=== PATIENT | female | born 1980 | race Caucasian/White ===

== ENCOUNTER 2017-01-23 21:30 | Inpatient (IN) | payer MEDICAID ==
[~2017-01-23] VITALS: Ht 149.9 cm; Wt 58.2 kg
[2017-01-23 21:56] LABS: BASOPHILS 0.3 % (0-2); EOSINOPHILS 0.9 % (0-7); HEMATOCRIT 42.6 % (36.0-48.0); HEMOGLOBIN 14.3 g/dL (12-16); IMMATURE GRANULOCYTES 0.3 % (0-5); LYMPHOCYTES 29.6 % (15-50); MCH 31.8 pg (26.0-34.0); MCHC 33.6 g/dL (31.0-37.0); MCV 94.7 fL (80.0-100.0); MEAN PLATELET VOLUME 9.1 fL (7.4-10.4); MONOCYTES 9.6 % (2-11); NEUTROPHILS 59.3 % (40-80); PLATELET COUNT 493 10x3/uL (130-400); RDW 13.3 % (11.5-14.5); WBC 11.8 10x3/uL (4.8-10.8)
[2017-01-23 22:04] LABS: APPEARANCE CLEAR (CLEAR); BILIRUBIN NEGATIVE (NEGATIVE); COLOR YELLOW (YELLOW); GLUCOSE NEGATIVE (NEGATIVE); KETONE NEGATIVE (NEGATIVE); LEUKOCYTE ESTERASE 1+ (NEGATIVE); NITRITE NEGATIVE (NEGATIVE); PROTEIN NEGATIVE (NEGATIVE); SPECIFIC GRAVITY 1.015 (1.005-1.020); UROBILINOGEN NORMAL (NORMAL)
[2017-01-23 22:05] LABS: BACTERIA MODERATE /hpf (NONE SEEN); EPITHELIAL CELLS 0-5 /hpf (0-5); RED CELLS - URINE 0-5 /hpf (0-5); WHITE CELLS - URINE 0-5 /hpf (0-5)
[2017-01-23 22:18] LABS: ALBUMIN 4.4 g/dL (3.4-5.0); ALKALINE PHOSPHATASE 101 U/L (46-116); ALT (SGPT) 22 U/L (10-68); BILIRUBIN - TOTAL 0.24 mg/dL (0.2-1.3); CALC OSMOLALITY 267 mosm/kg (275-300); CALCIUM 9.2 mg/dL (8.5-10.1); CARBON DIOXIDE 26.6 mmol/L (21.0-32.0); CHLORIDE - SERUM 99 mmol/L (98-107); CREATININE - SERUM 0.7 mg/dL (0.6-1.3); GLUCOSE 92 mg/dL (74-106); POTASSIUM - SERUM 3.2 mmol/L (3.5-5.1); SODIUM 134 mmol/L (136-145); UREA NITROGEN 13 mg/dL (7-18); eGFR NON AFRICAN AMERICAN > 90 mL/min (90-120)
[2017-01-23 22:20] LABS: HCG SERUM POSITIVE (NEGATIVE)
[2017-01-23 22:54] LABS: UDS - AMPHET POSITIVE QUAL (NEGATIVE); UDS - BARB NEGATIVE QUAL (NEGATIVE); UDS - BENZO NEGATIVE QUAL (NEGATIVE); UDS - COCAINE NEGATIVE QUAL (NEGATIVE); UDS - METH NEGATIVE QUAL (NEGATIVE); UDS - OPIATE NEGATIVE QUAL (NEGATIVE); UDS - PCP NEGATIVE QUAL (NEGATIVE); UDS - THC POSITIVE QUAL (NEGATIVE)
[2017-01-24] VITALS (8 sets, daily range): BP systolic 98–122; BP diastolic 54–66; Ht 149.9 cm; Wt 58.2 kg
[2017-01-24] MEDS ORDERED: TYLENOL W/CODEI1 TAB (02:19)
[2017-01-24] MEDS ORDERED: AMOXICILLIN500 M1 (02:20)
--- NOTE | 2017-01-24 02:57 | NUR ---
PT ARRIVES TO LABOR AND DELIVERY UNIT FROM ER VIA WC WITH ER STAFF. PT TRANSFERED SELF TO BED WITHOUT DIFFICULTY. PT IN NO ACUTE DISTRESS. PT IS A 36YO ADMITTED WITH RIGHT ECTOPIC . LEVAQUIN 750MG IV INFUSING VIA GRAVITY TO EXISTING 20G IV IN RIGHT HAND, FLUSHED AT THIS TIME WITHOUT DIFFICULTY, NO REDNESS, EDEMA, OR DRAINAGE NOTED AT THIS TIME. LEVAQUIN SET TO INFUSE VIA PUMP AT 100ML/HR. NOTIFIED BY ER STAFF SHE KNEW 500MG OF LEVAQUIN WAS ORDERED BUT 750MG WAS ALL THAT WAS AVAILABLE IN ER. AAOX3. HR REGULAR. ABDOMEN SOFT AND TENDER. BS ACTIVE TIMES 4. PT WITH RLQ PAIN, RATES 8/10. PT DENIES DIFFICULTY VOIDING. H&H STABLE AT THIS TIME. NO VAGINAL DISCHARGE NOTED. ADMISSION ASSESSMENT COMPLETE. NS WITH 40MEQ KCL HUNG TO INFUSE VIA PUMP AT 100ML/HR. DILAUDID 1MG GIVEN SLOW IVP FOR C/O PAIN. NPO STATUS REVIEWED WITH PT AND SO, IN PREPARATION FOR POSSIBLE SURGERY IN AM. POC DISCUSSED WITH PT AND SO, QUESTIONS ANSWERED. LINENS PROVIDED TO SO FOR NIGHT. PT + FOR METH AND THC. PT DENIES ANY FURTHER NEEDS AT THIS TIME. BED IN LOW POSITION, SIDE RAILS UP TIMES 2, CALL LIGHT AND PHONE IN REACH. WILL CONT TO MONITOR PT STATUS.
--- NOTE | 2017-01-24 04:20 | NUR ---
RN TO PT BS FOR ROUNDS. PT RESTING IN BED IN RIGHT LATERAL POSITION, WITH EYES CLOSED, IN NO ACUTE DISTRESS. RESPIRATIONS EVEN AND UNLABORED. BED IN LOW POSITION, SIDE RAILS UP TIMES 2, CALL LIGHT AND PHONE IN REACH. SO REMAINS AT PT BS FOR SUPPORT AND ASSISTANCE. WILL CONT TO MONITOR PT STATUS.
--- NOTE | 2017-01-24 05:35 | NUR ---
RN TO PT BS FOR ROUNDS. PT RESTING IN BED IN RIGHT LATERAL POSITION, WITH EYES CLOSED, IN NO ACUTE DISTRESS. BED IN LOW POSITION, SIDE RAILS UP TIMES 2, CALL LIGHT AND PHONE IN REACH. SO GABRIEL AT PT BS FOR SUPPORT AND ASSISTANCE. WILL CONT TO MONITOR PT STATUS.
[2017-01-24 06:59] LABS: BASOPHILS 0.2 % (0-2); HEMATOCRIT 41.6 % (36.0-48.0); HEMOGLOBIN 13.9 g/dL (12-16); IMMATURE GRANULOCYTES 0.2 % (0-5); LYMPHOCYTES 39.9 % (15-50); MCH 31.5 pg (26.0-34.0); MCHC 33.4 g/dL (31.0-37.0); MCV 94.3 fL (80.0-100.0); MEAN PLATELET VOLUME 9.2 fL (7.4-10.4); MONOCYTES 12.4 % (2-11); NEUTROPHILS 46.3 % (40-80); PLATELET COUNT 439 10x3/uL (130-400); RBC 4.41 10x6/uL (4.00-5.40); RDW 13.4 % (11.5-14.5); WBC 10.3 10x3/uL (4.8-10.8)
--- NOTE | 2017-01-24 07:03 | NUR ---
RN CALLED TO PT BS. PT C/O PAIN, RATES 05/09, REQUESTS MEDICATION. 1MG DILAUDID PROVIDED TO PT IVP. PT DENIES ANY FURTHER NEEDS. BED IN LOW POSITION, SIDE RAILS UP TIMES 2, CALL LIGHT AND PHONE IN REACH. WILL CONT TO MONITOR PT STATUS.
--- NOTE | 2017-01-24 07:20 | NUR ---
ENTERED ROOM- PT SITTING UP IN BED. CO NAUSEA AND STATES "I'M FIXING TO VOMIT" APPRO 100CC EMESIS IN CONTAINER. COOL CLOTH GIVEN- ENCOURAGED PT TO LAY BACK AND REST. PT CO BEING HOT. PT STREET CLOTHES REMOVED AND INTO HOSPITAL GOWN. PT MOVING ARMS ABOUT WILDLY WHILE PULLING OFF SHIRTS- ENCOURAGED TO SLOW DOWN NOT TO PULL OUT IV ACCESS. ASSESSMENT DONE.
--- NOTE | 2017-01-24 07:30 | NUR ---
DR SANABRIA CALLS UNIT- REPORT GIVEN PER Lyudmila COOLEY RN. ORDERS TO KEEP PT NPO.
--- NOTE | 2017-01-24 07:45 | NUR ---
DR SANABRIA IN UNIT TO SEE PT. NEW ORDERS RECEIVED.
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
--- NOTE | 2017-01-24 08:34 | NUR ---
DR SANABRIA LEAVES UNIT AND REQUESTS THAT SHE BE NOTIFIED WHEN PT GOES TO OR.
--- NOTE | 2017-01-24 08:41 | NUR ---
SURGICAL CONSENTS GIVEN TO PT AND EXPLAINED TO PT AND - CONSENT FOR LAPROSCOPY, EXPLORATORY LAPEROTOMY, REMOVAL OF ETOPIC AND ALL INDICATED PROCEDURES, CONSENT FOR TRANSFUSION AND CONSENT FOR ANESTHESIA.
--- NOTE | 2017-01-24 08:45 | NUR ---
PT TO OR. NOTIFIED DR SANABRIA. NOELLE, CLOTHES WITH SIGN OTHER.
--- NOTE | 2017-01-24 12:08 | NUR ---
TO ROOM 1278 FROM RR. PT DROWSY BUT AROUSES TO NAME AND FOLLOWS SIMPLE COMMANDS. MOVING SELF ABOUT IN BED. VS DONE. IV FLUIDS OF LR WITH APPRO 30CC REMAINING IN BAG. THIS BAG EXCHANGED FOR NEW BAG LR AND INFUSING AT 100CC/HR PER PUMP RT ARM- SITE WITHOUT REDNESS OR SWELLING. SMALL STERI STRIPS X 3 ON ABD- ONE AT UMBILICUS AND 2 LT LOWER ABD. ALL CLEAN AND DRY. NO HILARIO CATH NOTED. ABD SOFT. PEDAL PULSES PALP - SCD ON.
--- NOTE | 2017-01-24 12:34 | NUR ---
PT DOZING. NO REQUESTS. SIGN OTHER ARRIVES AT BEDSIDE. CALL LIGHT GIVEN.
--- NOTE | 2017-01-24 12:51 | NUR ---
DOZING- RESP REG AND EVEN. ABD UNCHANGED IN APPEARANCE. DENIES NEEDS.
--- NOTE | 2017-01-24 13:10 | NUR ---
TO PT'S ROOM, [place] [employer] SERVED. PT DENIES NAUSEA, SOB, OR DIFFICULTY BREATHING. PT STATES SHE DOES NOT WANT ANYTHING TO DRINK OR EAT AT THIS TIME. PT IS RESTING WITH EYES CLOSED, RESP EVEN AND UL AT 16/MIN. PT DENIES PAIN OR NEEDS AT THIS TIME. SIG OTHER AT BEDSIDE. SR UP X 2, CALL LIGHT AND PHONE WITHIN REACH.
--- NOTE | 2017-01-24 14:15 | NUR ---
PT CALLS OUT MANAGER DENTAL LIGHT, TO ROOM, PT STATES "I NEED TO GO PEE REALLY BAD". PT IS STANDING UP AT BEDSIDE, WITH IV LINE PULLED TAUGHT. EXPLAINED TO PT IMPORTANCE OF SAFETY, PT ASKED TO SIT BACK DOWN IN THE BED. PT SITTING ON SIDE OF BED NOW. IV SL SO PT CAN GET UP TO BR EASIER, SCD'S REMOVED. PT ASSISTED TO BR, GAIT SLOW AND STEADY. [place] HAT PLACED. PT VOIDS 500 ML'S YELLOW URINE IN [place] HAT. PT ASKING IF SHE CAN GO OUTSIDE TO SMOKE. EXPLAINED TO PT THIS IS A NO SMOKING CAMPUS, ALSO EXPLAINED TO PT RISKS OF SMOKING/SURGERY. PT THEN ASSISTED BACK TO BED. PT BEGINS TO YELL AND SCREAM AT MALE FRIEND IN THE ROOM, STATES "HE DON'T HAVE NO KIDS, HE DON'T KNOW HOW TO DO ANYTHING RIGHT, IF I COULD JUST TALK TO ONE OF MY KIDS, I WOULD BE BETTER. I HAVE A 18 YEAR OLD AT HOME, AND A 11 YEAR OLD AT HOME, AND THE 18 YEAR OLD DON'T HAVE ENOUGH SENSE TO GET TO WORK, AND SHE'LL GET FIRED, AND IT'LL BE MY FAULT". PT DENIES NEEDING PAIN MEDICATION, DENIES PAIN AT THIS TIME. PT DENIES SOB, DIFFICULTY BREATHING, DENIES NAUSEA. SR UP X2, CALL LIGHT AND PHONE WITHIN REACH. PT BEGINS TO YELL AT MALE FRIEND, "YOU KNOW WHAT, FUCK YOU, IF YOU CAN'T DO ANYTHING RIGHT, JUST LEAVE". MALE FRIEND YELLS BACK, "FUCK YOU TOO, I'M OUTTA HERE". PT REPLIES "FUCK THIS AND FUCK YOU, BYE. DALY."
--- NOTE | 2017-01-24 14:25 | NUR ---
PHONE CALL MADE TO DR. SANABRIA, INFORMED MD THAT PT IS YELLING AND CURSING AT ME, AND MALE FRIEND, HE IS ALSO YELLING AND CURSING AT PT. PROGRESS REPORT OF PT'S VOID OF 500 ML YELLOW URINE IN [place] HAT, PT DENIES PAIN, PT HAS HELD DOWN [place] [employer], AND JELLO. PT DENIES NAUSEA. PT REQUESTS TO GO OUTSIDE TO SMOKE, MD INFORMED. TELEPHONE ORDER RECEIVED TO DISCHARGE PT HOME TO FOLLOW UP IN CLINIC IN TWO WEEKS. PT INFORMED. SL DC'D WITH CATH INTACT. PT AND MALE FRIEND BEGIN TO YELL AND CURSE AT EACH OTHER AGAIN. PT AND FRIEND ASKED TO REFRAIN FROM YELLING AND CURSING, THEY AGREE. DISCHARGE PLANNING GONE OVER WITH PT AND FRIEND. PT STATES "WE DON'T HAVE NO FUCKING RIDE HOME, NO FUCKING GAS, NOTHING". INFORMED PT THAT A TAXI CAB VOUCHER CAN BE GIVEN IF NEEDED. PT STATES SHE DOES NEED A RIDE HOME. [facility] NOTIFIED THAT PT NEEDS A TAXI CAB RIDE HOME, OK'D BY HS. TONYA, IN ER ADMISSIONS NOTIFIED OF PT NEEDING A TAXI VOUCHER.
--- NOTE | 2017-01-24 14:45 | NUR ---
DISCHARGE INSTRUCTIONS EXPLAINED TO PT, COPIES OF D/C INSTRUCTIONS GIVEN TO PT. PRESCRIPTIONS FOR DEMEROL 50 MG AND IBUPROFEN 600 MG GIVEN TO PT, ALONG WITH APPT CARD, AND ECTOPIC D/C INSTRUCTION INFOR SHEET. PT DENIES QUESTIIONS.
[2017-01-24] MEDS ORDERED: IBUPROFEN600 MG PO (14:55)
[2017-01-24] MEDS ORDERED: MEPERIDINE HCL50 MG PO (14:56)
--- NOTE | 2017-01-24 15:00 | NUR ---
PT TAKEN TO ER ADMISSION ENTRANCE IN WHEELCHAIR, WITH SECURITY AND MYSELF. PT IS THEN GIVEN TAXI VOUCHER BY TONYA IN ER ADM. AWAITING TAXI CAB TO ARRIVE.
--- NOTE | 2017-01-24 15:15 | NUR ---
PT TAKEN TO TAXI CAB BY WHEELCHAIR AT THE ER ENTRANCE. PT ASSISTED TO TAXI CAB, WITH FRIEND ALSO RIDING HOME IN TAXI WITH PT. PT HAS VOUCHER IN HAND TO GIVE TO ASSOCIATE BUSINESS ANALYST.
== END 2017-01-24 15:00 | disposition home or self-care (01) | DRG 777 ==
LOC: D.ER 21:30 → D.LD 01-24 01:21
PROVIDERS: Emergency Medicine; ADMIT Obstetrics & Gynecology
PROC: 0UB54ZZ Excision of Right Fallopian Tube, Percutaneous Endoscopic Approach (ICD-10-PCS; 2017-01-24)
PROC: 10T24ZZ Resection of Products of Conception, Ectopic, Percutaneous Endoscopic Approach (ICD-10-PCS; principal; 2017-01-24 09:00)
DX: O00.10 Tubal pregnancy without intrauterine pregnancy (principal); F15.90 Other stimulant use, unspecified, uncomplicated; F12.90 Cannabis use, unspecified, uncomplicated; Z72.0 Tobacco use

== ENCOUNTER 2018-02-21 19:39 | Emergency (ER) | payer MEDICAID ==
[~2018-02-21] VITALS: Ht 149.9 cm; Wt 55.9 kg
[~2018-02-21 19:39] MED LIST: AMOXICILLIN500 M1; IBUPROFEN600 MG PO; MEPERIDINE HCL50 MG PO; TYLENOL W/CODEI1 TAB
[2018-02-21 19:56] VITALS: Ht 149.9 cm; Wt 55.9 kg
[2018-02-21] MEDS ORDERED: VOLTAREN75 MG PO (21:01)
[2018-02-21 21:15] VITALS: BP 131/72
== END 2018-02-21 21:16 | disposition home or self-care (01) ==
LOC: D.ER 19:39
DX: S09.90XA Unspecified injury of head, initial encounter (principal); Y04.2XXA Assault by strike against or bumped into by another person, initial encounter; Y93.89 Activity, other specified; Y92.019 Unspecified place in single-family (private) house as the place of occurrence of the external cause; R51 Headache; F17.200 Nicotine dependence, unspecified, uncomplicated